=== PATIENT | male | born 1965 | race Caucasian/White ===

== ENCOUNTER → 2021-03-22 | Outpatient (CLI) | payer OTHER ==
[~2021-03-22] MED LIST: AMLODIPINE BESYL5 MG PO; ASPIRIN EC81 MG PO; ATORVASTATIN CA20 MG PO; GLUCOPHAGE 500500 MG PO; LISINOPRIL10 MG PO
== END ==
LOC: KOH-I 14:10
DX: G90.512 Complex regional pain syndrome I of left upper limb (principal); G89.0 Central pain syndrome
CPT/HCPCS: 73120